=== PATIENT | male | born 1970 | race African-American/Black ===

== ENCOUNTER 2017-10-01 03:26 | Emergency (ER) | payer MEDICAID ==
[~2017-10-01] VITALS: Ht 188 cm; Wt 133.0 kg
[2017-10-01] MEDS ORDERED: PREDNISONE 20MG TABLET PO ONE (07:00)
[2017-10-01] MEDS ORDERED: ACETAMINOPHEN WITH CODEINE 300/30MG TABLET PO ONE (07:00)
[2017-10-01] MEDS ORDERED: CLINDAMYCIN HCL 150MG CAPSULE PO SCH (07:00)
[2017-10-01 07:13] VITALS: BP 145/79
== END 2017-10-01 08:47 | disposition home or self-care (01) ==
LOC: ER 03:26
DX: K04.7 Periapical abscess without sinus (principal); K02.9 Dental caries, unspecified; R22.0 Localized swelling, mass and lump, head
CPT/HCPCS: 99284; J7512